=== PATIENT | male | born 1940 | race Caucasian/White ===

== ENCOUNTER → 2017-06-06 | Outpatient (REF) ==
[~2017-06-06] MED LIST: ACTOS 45MG45 MG/TAB PO; ASPIR-LOW81 MG PO; CINNAMON BARK; COLACE100 MG PO; FORTAMET1000 MG PO; JANUVIA100 MG PO; NIASPAN 500MG500 MG; ULTRAM50 MG PO; [UNRECOGNIZED DRUG - OTHER]; ginko biloba; red yeast rice
[2017-06-06 19:06] LABS: PSA-TOTAL 0.69 ng/mL (0-4); THYROID STIMULATING HORMONE 2.08 uIU/mL (0.465-4.680)
== END ==
LOC: ZLAB.WCH 18:12
PROVIDERS: Internal Medicine
DX: Z01.89 Encounter for other specified special examinations (principal)
CPT/HCPCS: G0103

== ENCOUNTER → 2017-11-27 | Outpatient (REF) | LOC: ZLAB.WCH 14:20 | DX: Z01.89 Encounter for other specified special examinations (principal) ==

== ENCOUNTER → 2021-09-03 | Outpatient (REF) | LOC: COL.CARD 17:03 | DX: R07.9 Chest pain, unspecified (principal) ==

== ENCOUNTER 2021-12-25 16:21 | Inpatient (IN) | payer MEDICARE, OTHER ==
[2021-12-25] VITALS (272 sets, daily range): BP systolic 62; BP diastolic 42; PULSE 76; TEMP 98.3; O2SAT 98–100
[~2021-12-25] VITALS: Ht 165.1 cm; Wt 37.2 kg
--- NOTE | 2021-12-25 19:05 | NUR ---
Intubated at 0705 with an 8.0 ET tube by anesthesia. Bilateral breath sounds auscultated bilaterally post intubation. Vent settings initiated by RT per hospitalist orders. VS stable throughout procedure.
--- NOTE | 2021-12-25 19:15 | NUR ---
Patient intubated during shift change. Patient currently on ventilator, receiving 50% FiO2, PEEP of 6, rate of 20, and tidal volume of 400. ET tube is located 23 at the teeth. BP of 191/125 at this time; other vitals within normal limits. Patient has raza catheter in place to dependent drainage, voiding clear yellow urine. Patient is moving extremities and coughing against ventilator, although he does not open eyes to speech or pain nor does he follow verbal commands. HospitalistMalka, at bedside.
--- NOTE | 2021-12-25 19:32 | NUR ---
Dr. Caballero at bedside for central line placement. Left subclavian triple lumen placed. Orders received for chest XRAY to verify placement.
--- NOTE | 2021-12-25 20:00 | NUR ---
Patient intubated and sedated. Unable to perform suicide risk assesssment at this time.
--- NOTE | 2021-12-25 20:16 | NUR ---
PT RECEIVED VIA EMS TRANSFER FROM [facility]. PHONE REPORT FROM MARÍA DELUCA. PT ARRIVED ALTERED MENTAL STATUS, PULLING AT SELF AND LINES. PT SPEECH MUMMBLED AND INCOHERENT. PT TRYING TO ROLL AND SLIDE OUT OF BED. UNABLE TO FOLLOW VERBAL COMMANDS. HOSPITALIST NOTIFIED OF PT ARRIVAL AND AT BEDSIDE FOR ASSESSMENT.
[2021-12-25 20:37] LABS: BASO # 0.1 K/mm3 (0.0-0.2); BASO % 0.4 % (0.0-2.0); GRAN # 13.7 K/mm3 (1.4-6.5); GRAN % 89.2 % (42.2-75.2); HEMOGLOBIN 11.5 g/dl (13.5-18.0); LYMPH # 0.6 K/mm3 (1.2-3.4); LYMPH % 3.8 % (20.0-51.0); MEAN CELL VOLUME 89 fl (80.0-100.0); MEAN CORPUSCULAR HEMOGLOBIN 31 pg (27-31); MEAN CORPUSCULAR HGB CONC 35 g/dl (33.0-37.0); MEAN PLATELET VOLUME 9.1 fl (7.4-10.4); MONO % 6.3 % (1.7-9.3); PLATELET COUNT 207 K/mm3 (130-400); RED BLOOD COUNT 3.69 M/mm3 (4.20-5.60); REDCELL DISTRIBUTION WIDTH-CV 12.4 % (11.5-14.5)
[2021-12-25 20:38] LABS: HEMATOCRIT 32.8 % (42.0-52.0)
[2021-12-25 20:55] LABS: ALBUMIN 3.8 gm/dL (3.4-4.8); BILIRUBIN,TOTAL 1.1 mg/dL (0.2-1.2); CALCIUM 8.2 mg/dL (8.4-10.2); CREATININE, serum 0.78 mg/dL (0.72-1.25); MAGNESIUM 1.1 mg/dL (1.6-2.6); POTASSIUM 3.7 mmol/L (3.5-4.5); TOTAL PROTEIN 5.9 gm/dL (6.2-8.1)
--- NOTE | 2021-12-25 21:00 | NUR ---
Patient's belongings include street clothes and shoes, a pair of glasses, and bilateral hearing aids within a case. No wallet or cellphone is noted within belongings. No removable jewelry noted to his person. Belongings placed in patient closet.
[2021-12-25 21:14] LABS: TROPONIN-I 0.036 ng/mL (0.00-0.033)
[2021-12-25 21:14] LABS: ARTERIAL BLD GAS O2 SATURATION 99.1 % (92-100); ARTERIAL BLD GAS TCO2 CT 18.5; ARTERIAL BLOOD GAS BASE EXCESS -5.9 (-2-2); ARTERIAL BLOOD GAS HCO3 17.6 meq/L (22-26)
[2021-12-25 21:41] LABS: ARTERIAL BLOOD GAS PO2 207.7 mmHg (80-100)
[2021-12-26] VITALS (1196 sets, daily range): BP systolic 124–139; BP diastolic 50–59; PULSE 57–75; TEMP 97.4–98.2; O2SAT 96–100
[2021-12-26 02:08] LABS: COLLECTION METHOD CATHETER
[2021-12-26 02:15] LABS: MUCOUS Present (NOT PRESENT); PH 5 (5-8); SQUAMOUS EPITHELIAL 0-2 /hpf (0-10); URINE APPEARANCE Cloudy (CLEAR/HAZY); URINE BACTERIA Rare /hpf (NONE SEEN); URINE BLOOD 3+ (NEGATIVE); URINE CALCIUM OXALATE CRYSTAL Present (NOT PRESENT); URINE COLOR Yellow (YELLOW); URINE GLUCOSE 1+ (NEGATIVE); URINE KETONE Trace (NEGATIVE); URINE NITRATE Negative (NEGATIVE); URINE PROTEIN(semi-quant) 2+ (NEGATIVE); URINE RBC >50 /hpf (0-2); URINE UROBILINOGEN Negative (NEGATIVE)
[2021-12-26 09:36] LABS: ARTERIAL BLOOD GAS pH 7.54 (7.35-7.45)
[2021-12-26 09:37] LABS: ARTERIAL BLD GAS O2 SATURATION 98.5 % (92-100); ARTERIAL BLD GAS TCO2 CT 20; ARTERIAL BLOOD GAS BASE EXCESS -1.5 (-2-2); ARTERIAL BLOOD GAS HCO3 19.3 meq/L (22-26); ARTERIAL BLOOD GAS PCO2 22.9 mmHg (35-45); ARTERIAL BLOOD GAS PO2 126.7 mmHg (80-100)
--- NOTE | 2021-12-26 10:00 | NUR ---
The patient was placed on the ventilator upon admission. FELISA contacted the patient's brother, Morgan (ph#[phone]), to complete intake and establish next-of-kin. Morgan lives in [place]. 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 He states that he is not in contact with the patient much, but he did see him two weeks ago, when the patient came to visit. He states that the patient's friend, John Ocampo (ph#[phone]), helps take care of him. Morgan reports that the patient is not , does not have any children, and his parents are . Morgan states that he is the patient's only sibling. FELISA informed him how he is the patient's legal next of kin and decision maker. Morgan verbalized understanding and is okay with his. He asks that we contact him with any updates and if any decisions need to be made. FELISA then contacted the patient's friend, , to follow up about his baseline at home. states that he has been staying with the patient to help him. He has known the patient for around 4 years. He states that the patient has been independent with ADLs and does not have any DME. His PCP is Dr. Richard Bradshaw and he receives his medications from [facility]. believes the patient never completed a DPOA-HC and never wanted to. FELISA contacted the patient's PCP's office, Dr. Bradshaw, to inquire if they have a DPOA-HC on file. The operator receptionist reports that they do not have one on file. *Discharge plan: Unknown at this time. Patient remains on vent*
[2021-12-26 10:43] LABS: CREATININE, serum 1.16 mg/dL (0.72-1.25); POTASSIUM 3.6 mmol/L (3.5-4.5)
[2021-12-26 10:45] LABS: TROPONIN-I 0.086 ng/mL (0.00-0.033)
[2021-12-26 11:05] LABS: BASO # 0.1 K/mm3 (0.0-0.2); BASO % 0.6 % (0.0-2.0); EOS % 0.3 % (0.0-4.0); GRAN # 12.9 K/mm3 (1.4-6.5); GRAN % 82.1 % (42.2-75.2); LYMPH # 1.3 K/mm3 (1.2-3.4); LYMPH % 8.1 % (20.0-51.0); MEAN CELL VOLUME 89 fl (80.0-100.0); MEAN CORPUSCULAR HEMOGLOBIN 31 pg (27-31); MEAN CORPUSCULAR HGB CONC 35 g/dl (33.0-37.0); MEAN PLATELET VOLUME 9.6 fl (7.4-10.4); MONO # 1.3 K/mm3 (0.1-0.6); MONO % 8.5 % (1.7-9.3); PLATELET COUNT 292 K/mm3 (130-400); RED BLOOD COUNT 3.86 M/mm3 (4.20-5.60); REDCELL DISTRIBUTION WIDTH-CV 12.7 % (11.5-14.5)
[2021-12-26 11:08] LABS: HEMATOCRIT 34.5 % (42.0-52.0)
[2021-12-26 13:13] LABS: ARTERIAL BLOOD GAS PCO2 29.7 mmHg (35-45); ARTERIAL BLOOD GAS PO2 107.7 mmHg (80-100); ARTERIAL BLOOD GAS pH 7.49 (7.35-7.45)
[2021-12-26 13:14] LABS: ARTERIAL BLD GAS O2 SATURATION 98.1 % (92-100); ARTERIAL BLD GAS TCO2 CT 23; ARTERIAL BLOOD GAS BASE EXCESS -0.4 (-2-2); ARTERIAL BLOOD GAS HCO3 22.1 meq/L (22-26)
--- NOTE | 2021-12-26 17:00 | NUR ---
SEDATION VACATION NOT INDICATED AT THIS TIME
--- NOTE | 2021-12-26 18:41 | NUR ---
MORNING SHIFT REPORT RECEIVED. PT SEDATED. UNABLE TO PREFORM SI SCREEN AND NIHH SCREEN DUE TO SEDATION. ATTEMPTED TO APPLY SCD'S, AGGITATED PT SO SCD'S REMOVED, PROVIDER NOTIFIED.
[2021-12-27] VITALS (1433 sets, daily range): BP systolic 108–139; BP diastolic 45–71; PULSE 59–84; TEMP 97.7–98.4; O2SAT 91–100
--- NOTE | 2021-12-27 03:46 | NUR ---
LEVO HELD AT THIS TIME. BP > ORDERED PARAMETERS. WILL CONTINUE WITH LEVO TITRATION IN BP DROPS BELOW ORDERED PARAMETERS
[2021-12-27 04:43] LABS: ARTERIAL BLD GAS O2 SATURATION 97.9 % (92-100); ARTERIAL BLD GAS TCO2 CT 26.1; ARTERIAL BLOOD GAS BASE EXCESS 1.1 (-2-2); ARTERIAL BLOOD GAS HCO3 24.9 meq/L (22-26); ARTERIAL BLOOD GAS PCO2 36.7 mmHg (35-45); ARTERIAL BLOOD GAS pH 7.45 (7.35-7.45)
[2021-12-27 05:06] LABS: BASO # 0.1 K/mm3 (0.0-0.2); BASO % 0.6 % (0.0-2.0); EOS # 0.1 K/mm3 (0.0-0.7); EOS % 1.5 % (0.0-4.0); GRAN # 7.7 K/mm3 (1.4-6.5); GRAN % 82.3 % (42.2-75.2); LYMPH # 0.6 K/mm3 (1.2-3.4); LYMPH % 6.7 % (20.0-51.0); MEAN CORPUSCULAR HGB CONC 33 g/dl (33.0-37.0); MEAN PLATELET VOLUME 9.5 fl (7.4-10.4); MONO # 0.8 K/mm3 (0.1-0.6); MONO % 8.4 % (1.7-9.3); RED BLOOD COUNT 3.22 M/mm3 (4.20-5.60); REDCELL DISTRIBUTION WIDTH-CV 13.2 % (11.5-14.5)
[2021-12-27 05:18] LABS: HEMATOCRIT 30.1 % (42.0-52.0); MEAN CELL VOLUME 94 fl (80.0-100.0); MEAN CORPUSCULAR HEMOGLOBIN 31 pg (27-31)
[2021-12-27 05:19] LABS: PLATELET COUNT 178 K/mm3 (130-400)
[2021-12-27 05:21] LABS: CALCIUM 8.1 mg/dL (8.4-10.2); CREATININE, serum 0.78 mg/dL (0.72-1.25); MAGNESIUM 2.1 mg/dL (1.6-2.6); PHOSPHOROUS 2.8 mg/dL (2.3-4.7); POTASSIUM 3.3 mmol/L (3.5-4.5)
[2021-12-27 05:27] LABS: TROPONIN-I 0.027 ng/mL (0.00-0.033)
--- NOTE | 2021-12-27 06:14 | NUR ---
SEDATION DECREASED PER DAILY SEDATION INTERRUPTION
--- NOTE | 2021-12-27 07:12 | NUR ---
PT NOT NIHARIKAGLE FOR TRIAL AT THIS TIME
--- NOTE | 2021-12-27 09:00 | NUR ---
PT on sedation vacation, pt is lifting both legs and pulling at restraints, PT has good strength and hard to stop from pulling towards ETT. PT placed back under sedation with PROPOFOL and FENTANYL at previous rate. See GTT titrations. physician notified of PT failure to follow directions.
--- NOTE | 2021-12-27 18:52 | NUR ---
CHARTING OTHER SHIFT
--- NOTE | 2021-12-27 19:15 | NUR ---
Received report from YOSI Pimentel.
--- NOTE | 2021-12-27 19:45 | NUR ---
Patient somewhat restless in bed. Remains on ventilator, tolerating well. Vitals within normal limits. Continues to receive propofol, fentanyl, and amiodarone drips, see IV drip titrations. Propofol titrated according to orders for restlessness.
--- NOTE | 2021-12-27 22:55 | NUR ---
IN ER 2100 NOT CHARTED
[2021-12-28] VITALS (1415 sets, daily range): BP systolic 115–182; BP diastolic 51–87; PULSE 67–122; TEMP 97.4–100.6; O2SAT 70–100
[2021-12-28 03:15] LABS: ARTERIAL BLD GAS O2 SATURATION 97.1 % (92-100); ARTERIAL BLD GAS TCO2 CT 28.3; ARTERIAL BLOOD GAS BASE EXCESS 2.8 (-2-2); ARTERIAL BLOOD GAS HCO3 27.1 meq/L (22-26); ARTERIAL BLOOD GAS PCO2 40.1 mmHg (35-45); ARTERIAL BLOOD GAS PO2 93.6 mmHg (80-100); ARTERIAL BLOOD GAS pH 7.45 (7.35-7.45)
[2021-12-28 05:33] LABS: BASO % 0.4 % (0.0-2.0); EOS # 0.2 K/mm3 (0.0-0.7); EOS % 2.2 % (0.0-4.0); GRAN # 5.5 K/mm3 (1.4-6.5); GRAN % 80.9 % (42.2-75.2); LYMPH # 0.6 K/mm3 (1.2-3.4); LYMPH % 8.3 % (20.0-51.0); MEAN CELL VOLUME 93 fl (80.0-100.0); MEAN CORPUSCULAR HGB CONC 34 g/dl (33.0-37.0); MEAN PLATELET VOLUME 9.8 fl (7.4-10.4); MONO # 0.6 K/mm3 (0.1-0.6); MONO % 8.1 % (1.7-9.3); PLATELET COUNT 159 K/mm3 (130-400); RED BLOOD COUNT 2.94 M/mm3 (4.20-5.60); REDCELL DISTRIBUTION WIDTH-CV 13.2 % (11.5-14.5)
[2021-12-28 05:37] LABS: HEMATOCRIT 27.2 % (42.0-52.0); HEMOGLOBIN 9.2 g/dl (13.5-18.0); MEAN CORPUSCULAR HEMOGLOBIN 31 pg (27-31)
[2021-12-28 05:43] LABS: CALCIUM 8.1 mg/dL (8.4-10.2); CREATININE, serum 0.68 mg/dL (0.72-1.25)
--- NOTE | 2021-12-28 10:13 | NUR ---
The patient remains on the vent. Per the hospitalist note, he may be extubated later today. *Discharge plan: Undetermined at this time*
--- NOTE | 2021-12-28 11:22 | NUR ---
PT EXTUBATED PER ORDER FROM DR TRACI MCCRAY. PT CURRENTLY ON RA W/SATS IN THE MID 90'S. NO DISTRESS NOTED AT THIS TIME
--- NOTE | 2021-12-28 15:25 | NUR ---
0730- MORNING ASSESSMENT PT IS LAYING IN BED. OPENS EYES TO NAME. SQUEEZES THIS RNS HANDS WHEN REQUESTED. VSS. MEDICATIONS, LINES AND TUBES VERIFIED. 0840- ALL SEDATION PUT ON STAND BY PER DR. AVILES 0915- PT PLACED ON CPAP PRESSURE SUPPORT TRIAL 1105- ORDER FROM DR. AVILES TO EXTUBATE 1114- PT EXTUBATED BY RT KWABENA. PT HAS LOTS OF SECRETIONS PATIENT IS SUCTIONED ORALLY. PT IS PLACED ON 2L O2. PT IS MAINTAINING O2 SATURATIONS. CURRENTLY PT IS STILL CLEARING THROAT OFTEN AND COUGHING UP BROWN TINGED SECRETION. PTS SPO2 SHOWS 93-98%. PT IS CONSTANTLY THROWING LEGS OUT OF BED. DOES NOT WANT HIS MOUTH SUCTIONED AND IS TRYING TO HIT THIS RN WITH IT. PT DOES NOT ANSWER QUESTIONS.
--- NOTE | 2021-12-28 15:47 | NUR ---
The patient RN notified SW that the patient was extubated today. His friend, , came to visit him and is concerned about him coming home. He continues to have some confusion and was having some weakness before being admitted. SW contacted the patient's brother, Morgan, to review the above. Morgan is supportive and in agreement to post-acute rehab upon discharge. He is open to SW sending referrals to the local SNFs. Morgan verbalized that if the patient would need to be reintubated, he gives consent to intubate. FELISA updated the patient's RN. FELISA contacted and faxed a referral to [facility] and [facility]. *Discharge plan: SNF. Referrals out*
--- NOTE | 2021-12-28 18:29 | NUR ---
ATTEMPTING TO MOVE PATIENT UP IN BED PT YELLS TO GET OUT OF HIS HOUSE. PT IS REORIENTED AND DOES NOT SPEAK TO RN AFTER.
--- NOTE | 2021-12-28 19:25 | NUR ---
REPORT GIVEN TO YOSI MALDONADO.
--- NOTE | 2021-12-28 19:30 | NUR ---
Received report from YOSI Solano. Patient resting quietly in bed. He continues to receive 2L oxygen via nasal cannula, tolerating well. He is alert, following verbal commands although he is confused. Current BP 176/81; per report received from Xiomara, patient's BPs have been upward trending throughout the day. Other vitals within normal limits. Will continue to monitor.
--- NOTE | 2021-12-28 20:15 | NUR ---
Patient unable to tolerate ice chips, water, or applesauce during swallow evaluation without immediately coughing. Holding PO medications at this time due to risk for aspiration.
--- NOTE | 2021-12-28 22:20 | NUR ---
Notified Dr. Ventura of patient's inability to tolerate PO amio administration. Patient's SBPs currently 170-190s; patient ST with rates 110-125. Orders received to restart amio drip at 1 mg/min and to maintain at that dose until reassessed by cardiology. Orders also received to initiate cardene drip at 2.5 mg/hr, to titrate for a SBP goal of 170 or less.
[2021-12-29] VITALS (1291 sets, daily range): BP systolic 94–168; BP diastolic 72–98; PULSE 89–112; TEMP 98.1–99.6; O2SAT 77–100
[2021-12-29 05:17] LABS: HEMOGLOBIN 10.4 g/dl (13.5-18.0); MEAN CELL VOLUME 92 fl (80.0-100.0); MEAN CORPUSCULAR HEMOGLOBIN 31 pg (27-31); MEAN CORPUSCULAR HGB CONC 34 g/dl (33.0-37.0); MEAN PLATELET VOLUME 9.2 fl (7.4-10.4); PLATELET COUNT 195 K/mm3 (130-400); RED BLOOD COUNT 3.35 M/mm3 (4.20-5.60); REDCELL DISTRIBUTION WIDTH-CV 12.9 % (11.5-14.5)
--- NOTE | 2021-12-29 05:25 | NUR ---
PT SEEMS CONFUSED AND AGITATED. EKG WAS DONE AND ATTEMPTED WITH INTERPRETATION OF AFIB W RVR. DUE TO PT CONFUSION AND CONSTANT MOVEMENT, ARTIFACT SEEMED TO AFFECT INTERPRETATION AND I WILL PASS THIS MESSAGE ON TO DAY SHIFT RT TO SEE IF PHYSICIAN WOULD LIKE A REPEAT ATTEMPT.
[2021-12-29 05:28] LABS: HEMATOCRIT 30.8 % (42.0-52.0)
[2021-12-29 05:44] LABS: CALCIUM 8.7 mg/dL (8.4-10.2); CREATININE, serum 0.63 mg/dL (0.72-1.25); POTASSIUM 3.9 mmol/L (3.5-4.5)
[2021-12-29 06:17] LABS: BAND 12 % (0-10); LYMPHOCYTE 6 % (20.0-51.0); NEUTROPHILS 74 % (42.0-75.2)
[2021-12-29 06:18] LABS: PLATELET ESTIMATE NORMAL (NORMAL)
--- NOTE | 2021-12-29 06:30 | NUR ---
BEDSIDE SHIFT REPORT GIVEN. PATIENT HAS CENTRAL LINE AND IS ON O2. PATIENT IS AWAKE AND ALERT. NOT FOLLOWING COMMANDS. PATIENT ON AMIO AND CARDENE GTTS WITH FLUIDS OF LR GOING. PATIENT ALSO HAS A KWONG THAT IS INTACT AND BELOW BLADDER AND DRAINING APPROPRIATLY.
--- NOTE | 2021-12-29 19:15 | NUR ---
Received report from YOSI Austin. Patient resting quietly in bed. Vitals within normal limits. Continues to receive amio drip and TPN. He is alert and following verbal commands; conversation is confused.
[2021-12-30] VITALS (1227 sets, daily range): BP systolic 134–172; BP diastolic 65–91; PULSE 16–87; TEMP 97.4–99.9; O2SAT 74–100
[2021-12-30 05:34] LABS: BASO # 0.1 K/mm3 (0.0-0.2); BASO % 0.6 % (0.0-2.0); EOS # 0.1 K/mm3 (0.0-0.7); EOS % 0.9 % (0.0-4.0); GRAN # 7.2 K/mm3 (1.4-6.5); GRAN % 82.3 % (42.2-75.2); HEMOGLOBIN 10.3 g/dl (13.5-18.0); LYMPH # 0.5 K/mm3 (1.2-3.4); LYMPH % 5.6 % (20.0-51.0); MEAN CELL VOLUME 92 fl (80.0-100.0); MEAN CORPUSCULAR HEMOGLOBIN 31 pg (27-31); MEAN CORPUSCULAR HGB CONC 34 g/dl (33.0-37.0); MEAN PLATELET VOLUME 9.4 fl (7.4-10.4); MONO # 0.9 K/mm3 (0.1-0.6); MONO % 10.1 % (1.7-9.3); PLATELET COUNT 206 K/mm3 (130-400); RED BLOOD COUNT 3.31 M/mm3 (4.20-5.60); REDCELL DISTRIBUTION WIDTH-CV 12.8 % (11.5-14.5)
[2021-12-30 05:37] LABS: HEMATOCRIT 30.3 % (42.0-52.0)
[2021-12-30 06:01] LABS: CALCIUM 8.7 mg/dL (8.4-10.2); CREATININE, serum 0.59 mg/dL (0.72-1.25); MAGNESIUM 1.7 mg/dL (1.6-2.6); POTASSIUM 3.4 mmol/L (3.5-4.5)
--- NOTE | 2021-12-30 07:30 | NUR ---
Report given to YOSI Solano.
--- NOTE | 2021-12-30 15:01 | NUR ---
SW contact requested to fax documenation to [facility]. Patient referral documentation faxed. SW will continue to follow.
--- NOTE | 2021-12-30 20:00 | NUR ---
Patient sleeping quietly in bed. Vitals within normal limits. Continues to receive amiodarone drip, see IV drip titrations. TPN and lipids infusing. Langford to dependent drainage. Bed in lowest position, all alarms on.
[2021-12-31] VITALS (570 sets, daily range): BP systolic 147–178; BP diastolic 54–82; PULSE 65–76; TEMP 98.1–99.7; O2SAT 80–100
[2021-12-31 04:24] LABS: ARTERIAL BLD GAS O2 SATURATION 86.5 % (92-100); ARTERIAL BLD GAS TCO2 CT 26.2; ARTERIAL BLOOD GAS BASE EXCESS 1.5 (-2-2); ARTERIAL BLOOD GAS HCO3 25.1 meq/L (22-26); ARTERIAL BLOOD GAS PCO2 35.8 mmHg (35-45); ARTERIAL BLOOD GAS PO2 50.7 mmHg (80-100); ARTERIAL BLOOD GAS pH 7.46 (7.35-7.45)
[2021-12-31 04:38] LABS: ALBUMIN 2.4 gm/dL (3.4-4.8); BILIRUBIN,TOTAL 0.3 mg/dL (0.2-1.2); CALCIUM 8.6 mg/dL (8.4-10.2); CREATININE, serum 0.63 mg/dL (0.72-1.25); MAGNESIUM 1.8 mg/dL (1.6-2.6); POTASSIUM 3.4 mmol/L (3.5-4.5); TOTAL PROTEIN 5.5 gm/dL (6.2-8.1)
[2021-12-31 04:53] LABS: BASO % 0.4 % (0.0-2.0); EOS # 0.2 K/mm3 (0.0-0.7); EOS % 2.4 % (0.0-4.0); GRAN # 6.3 K/mm3 (1.4-6.5); HEMOGLOBIN 10.1 g/dl (13.5-18.0); LYMPH # 0.6 K/mm3 (1.2-3.4); LYMPH % 7.4 % (20.0-51.0); MEAN CELL VOLUME 91 fl (80.0-100.0); MEAN CORPUSCULAR HEMOGLOBIN 32 pg (27-31); MEAN CORPUSCULAR HGB CONC 35 g/dl (33.0-37.0); MEAN PLATELET VOLUME 9.7 fl (7.4-10.4); MONO # 0.9 K/mm3 (0.1-0.6); MONO % 11.3 % (1.7-9.3); PLATELET COUNT 226 K/mm3 (130-400); RED BLOOD COUNT 3.21 M/mm3 (4.20-5.60); REDCELL DISTRIBUTION WIDTH-CV 12.8 % (11.5-14.5)
[2021-12-31 04:54] LABS: HEMATOCRIT 29.3 % (42.0-52.0)
--- NOTE | 2021-12-31 07:00 | NUR ---
REPORT RECEIVED FROM YOSI LI; PATIENT CURRENTLY RESTING IN BED ON 4 LITERS OF OXYGEN VIA NC; VITAL SIGNS HAVE BEEN WITHIN NORMAL LIMITS OVERNIGHT WITH BLOOD PRESSURE OCCASSIONALLY BEING HYPERTENSIVE. PATIENT HAS MORE SECRETIONS THAN HE HAS BEEN HAVING AND ABGS THIS MORNING SHOW PO2 IS LOW AND IN THE 50S. PATIENT HAS TRIPLE LUMEN SUBCLAVIAN LINE THAT HAS HAD TROUBLE WITH RETURN; WILL POTENTIALLY PLACE PICC LINE TODAY AN ALTERNATIVE. TPN AND AMIO ARE CURRENTLY RUNNING AND POTASSIUM IS BEING REPLACED.
--- NOTE | 2021-12-31 10:29 | NUR ---
Denzel with [facility] is ready for the patient once the patient is medically ready. Patient is needing more oxygen needs at this time and is not ready for discharge.
--- NOTE | 2021-12-31 15:00 | NUR ---
Patient to room 309 from the ICU, Alert, but confused and KENAITZE. VSS 3L NC O2, no SOB reported. IV CDI. Langford intact. Patient NPO. Nursing staff instructing the patient not to pull on IV lines. Call light within reach
--- NOTE | 2021-12-31 15:00 | NUR ---
Unable to verify patients home medication and pharmacy, patient is [place] and confused.
--- NOTE | 2021-12-31 16:45 | NUR ---
DECREASED AMIO DRIP FROM 1 MG/MIN TO 0.5 MG/MIN PER DR. MANUEL
--- NOTE | 2021-12-31 20:16 | NUR ---
PT WAS ABLE TO BRING SECRETIONS UP TO HIS MOUTH WHILE SITTING STRAIGHT UP IN BED, SUCITONED WITH YANKAUER, AFTER DUONEB NEBULIZER.
--- NOTE | 2021-12-31 21:52 | NUR ---
THE PATIENT IS STILL NPO, THIN FLUIDS CONTINUE TO MAKE THE PATIENT COUGH. SUCTION AT BEDSIDE. TPN AND AMIO RUNNING AT THIS TIME. THE PATIENT IS ALERT, BUT NOT ORIENTED TO LOCATION. THE PATIENT IS REMINICING AND TALKING ABOUT HOW HE STOPPED HIS ALCOHOL DRINKING, AND TALKING ABOUT HIS PAST JOBS. IN BETWEEN THOSE STATEMENTS, THE PATIENT IS CONTINUING TO COUGH. HE DOES SOUND LIKE HE HAS SECRETIONS IN HIS THROAT. THE PATIENT IS ORIENTED TO THE YAUNKER SUCTION, HE ASKED FOR IT FOR WHEN HE COUGHS HE WOULD LIKE TO USE THAT TO SUCTION IT OUT. HE THANKED THIS RN FOR HELPING HIM AND FOR LISTENING TO HIM. HE STATES THAT HE DOESN'T FEEL LIKE ANYONE HAS BEEN HELPING HIM. HE CONTINUES TO STATE THAT "THE NURSE WANTS ME TO STAY THE NIGHT HERE, RIGHT?" THIS RN CONFIRMS THAT HE IS SUPPOSED TO STAY.
--- NOTE | 2022-01-01 02:48 | NUR ---
TX GIVEN VIA MASK, TOLERATED WELL.
[2022-01-01 04:13] VITALS: BP 146/53; PULSE 73; TEMP 98
--- NOTE | 2022-01-01 05:45 | NUR ---
Unable to obtain ABG at this time. Attempted X 2, LR. (Right limb restriction.) Pt stated "don't jab me anymore." RN notified.
[2022-01-01 06:52] LABS: BASO # 0.1 K/mm3 (0.0-0.2); BASO % 0.8 % (0.0-2.0); EOS # 0.3 K/mm3 (0.0-0.7); EOS % 4.7 % (0.0-4.0); GRAN # 4.5 K/mm3 (1.4-6.5); GRAN % 70.9 % (42.2-75.2); LYMPH # 0.6 K/mm3 (1.2-3.4); LYMPH % 9.1 % (20.0-51.0); MEAN CELL VOLUME 92 fl (80.0-100.0); MEAN CORPUSCULAR HGB CONC 34 g/dl (33.0-37.0); MEAN PLATELET VOLUME 9.4 fl (7.4-10.4); MONO # 0.8 K/mm3 (0.1-0.6); MONO % 13.2 % (1.7-9.3); PLATELET COUNT 208 K/mm3 (130-400); RED BLOOD COUNT 2.86 M/mm3 (4.20-5.60); REDCELL DISTRIBUTION WIDTH-CV 12.8 % (11.5-14.5)
[2022-01-01 06:54] LABS: HEMATOCRIT 26.4 % (42.0-52.0); HEMOGLOBIN 8.9 g/dl (13.5-18.0); MEAN CORPUSCULAR HEMOGLOBIN 31 pg (27-31)
[2022-01-01 07:14] LABS: CALCIUM 8.5 mg/dL (8.4-10.2); CREATININE, serum 0.62 mg/dL (0.72-1.25); MAGNESIUM 1.8 mg/dL (1.6-2.6); POTASSIUM 3.5 mmol/L (3.5-4.5)
[2022-01-01 07:41] VITALS: BP 146/52; PULSE 63; TEMP 98.3
--- NOTE | 2022-01-01 09:35 | NUR ---
Attended rounds with hospitalist and computer support specialist instructor. Patient has been cleared for transfer to [facility]. SW aware and working on coordination.
--- NOTE | 2022-01-01 11:17 | NUR ---
PATIENT REMOVED KWONG CATHERTER. NO NOTICABLE TRAUMA OF THE PENIS. KWONG TIP AND BALLON INTACT. KWONG REPLACED WITH NEW KIT, 16FR WITH 10CC IN BALLOON. DRAINING CLEAR YELLOW URINE. PATIENT PLACED IN VAIBHAV MITTS TO PREVENT PULLING AT ALL OTHER LINES.
--- NOTE | 2022-01-01 12:28 | NUR ---
order for ceontral line removal received for after PICC placement was completed. Dressing removed, sutures x4 removed with sterile kit, site cleansed with chloraprep x2, pt lying in supine position, instructed to bear down while catheter was pulled out. digital pressure applied to site for 5 minutes with sterile gauze. Site dressed with sterile gauze and foam dressing. PT tolerated well, no s/sx of distress. pt to remain supine for 30 min. Primary nurse notified.
--- NOTE | 2022-01-01 15:09 | NUR ---
Emergency Crew Supervisor contacted patient's brother, Morgan to discuss discharge to [facility]. Morgan would like an update from the Physician and to discuss recommendation for [facility]. FELISA facilitated conversation between Hospitalist and Morgan. FELISA followed up with Morgan who advised he was in agreement with discharge to [facility] today via ambulance. FELISA met with patient and patient's caregiver, at bedside to update on plan to discharge to [facility]. Denzel, Clinical Liason visited with patient, caregiver, and brother. FELISA collaborated with Geospatial Specialist who advised [facility] is not available at this time due to other calls. FELISA contacted [facility] and set pickling solution maker time for 1600. FELISA placed completed EMS forms on chart. FELISA faxed updates and discharge orders to Denzel at [facility]. Discharge Plan: [facility]
--- NOTE | 2022-01-01 16:58 | NUR ---
PATIENT TRANSFERED TO EMT STRETCHER WITH IV POTASSIUM, TPN AND AMIO RUNNING. NO COMPLAINTS OF PAIN. MITTS IN PLACE. PICC SITES C/D/I.
== END 2022-01-01 16:00 | DRG 208 ==
LOC: IMCU 16:21 → ICU 18:17 → MEDICAL 12-31 14:30
PROVIDERS: Internal Medicine; Internal Medicine Pulmonary Disease; Student in an Organized Health Care Education/Training Program; ADMIT Internal Medicine
PROC: 5A1945Z Respiratory Ventilation, 24-96 Consecutive Hours (ICD-10-PCS; principal; 2021-12-25)
PROC: 02HV33Z Insertion of Infusion Device into Superior Vena Cava, Percutaneous Approach (ICD-10-PCS; 2021-12-25)
PROC: 0BH17EZ Insertion of Endotracheal Airway into Trachea, Via Natural or Artificial Opening (ICD-10-PCS; 2021-12-25)
PROC: 02H633Z Insertion of Infusion Device into Right Atrium, Percutaneous Approach (ICD-10-PCS; 2021-12-31)
PROC: 02HV33Z Insertion of Infusion Device into Superior Vena Cava, Percutaneous Approach (ICD-10-PCS; 2022-01-01)
DX: J69.0 Pneumonitis due to inhalation of food and vomit (principal); J96.01 Acute respiratory failure with hypoxia; G93.41 Metabolic encephalopathy; I21.A1 Myocardial infarction type 2; I67.82 Cerebral ischemia; I16.1 Hypertensive emergency; J91.8 Pleural effusion in other conditions classified elsewhere; I48.91 Unspecified atrial fibrillation; E11.9 Type 2 diabetes mellitus without complications; E55.9 Vitamin D deficiency, unspecified; E53.8 Deficiency of other specified B group vitamins; H91.93 Unspecified hearing loss, bilateral; N40.0 Benign prostatic hyperplasia without lower urinary tract symptoms; S01.81XA Laceration without foreign body of other part of head, initial encounter; I10 Essential (primary) hypertension; E78.5 Hyperlipidemia, unspecified; I95.9 Hypotension, unspecified; I08.0 Rheumatic disorders of both mitral and aortic valves; D64.9 Anemia, unspecified; Z66 Do not resuscitate; E87.70 Fluid overload, unspecified; J38.7 Other diseases of larynx; R13.10 Dysphagia, unspecified; Z79.82 Long term (current) use of aspirin; Z79.4 Long term (current) use of insulin; Z86.16 Personal history of COVID-19; Z79.01 Long term (current) use of anticoagulants; Z88.2 Allergy status to sulfonamides; Z90.89 Acquired absence of other organs; Z90.49 Acquired absence of other specified parts of digestive tract; Z91.14 Patient's other noncompliance with medication regimen
CPT/HCPCS: 99233-AI; C1751; C1892; J0282; J0330; J0360; J0696; J1630; J1650; J1815; J1940; J1953; J2543; J2704; J3010; J3411; J3475; J3480; J7050; J7060; J7120; J7131; Q9967